=== PATIENT | female | born 1930 | race Caucasian/White ===

== ENCOUNTER 2019-02-19 02:33 | Inpatient (IN) | payer MEDICARE, OTHER ==
[~2019-02-19] VITALS: Ht 160 cm; Wt 46.7 kg
[2019-02-19 02:50] LABS: BASOPHILS # (AUTO) 0.1 /CMM (0.0-0.2); BASOPHILS % (AUTO) 0.7 % (0.0-2.0); EOSINOPHILS % (AUTO) 0.7 % (0.0-6.0); HEMATOCRIT 35 % (33-45); HEMOGLOBIN 11.4 g/dL (11.5-14.8); LYMPHOCYTES # (AUTO) 1.9 /CMM (0.8-4.8); MEAN CORPUSCULAR HGB CONC 33 g/dl (31.0-36.0); MEAN CORPUSCULAR VOLUME 82 fL (82-100); MONOCYTES # (AUTO) 2.6 /CMM (0.1-1.30); MONOCYTES % (AUTO) 12.3 % (2.0-12.0); NEUTROPHILS # (AUTO) 16.4 /CMM (1.8-8.9); NEUTROPHILS % (AUTO) 77.3 % (43.0-81.0); PLATELET COUNT (AUTO) 439 /CMM (150-450); RED BLOOD CELL COUNT(AUTO) 4.27 MIL/uL (4.0-5.2); WHITE BLOOD COUNT (AUTO) 21.2 K/uL (4.3-11.0)
--- NOTE | 2019-02-19 02:54 | NUR ---
MIREYA FROM HOME TO ER BED 10. AAOX4. NO RESP DISTRESS NOTED. BROUGHT IN FOR A GROUND LEVEL FALL AND SI. PT STATES THAT SHE FELL BECAUSE SHE WAS TRYING TO GO TO THE BATHROOM. PT ALSO STATES THAT SHE TOOK 9 TAB OF ASPIRIN THEN LATER ON CHAGED IT TO 9 TABLET VALIUM. PT IS COMPLAINING OF NECK PAIN. NOTED R ELBOW SKIN TEAR AND DISCLORATION AND ANOTHE SKIN TEAR ON R JESUS. NO ACTIVE BLEDDING NOTED. NO NOTED INJURY ON THE HEAD, DENIES TRAUMA. MD WAS AT BEDSIDE FOR EVAL ORDERS RECEIVED, NOTED, AND CARRIED OUT. PT IS STRIPPED OF CLOTHING, NO BELONGINGS UPON ARRIVAL.
[2019-02-19 03:04] LABS: ALANINE AMINOTRANSFERASE 10 U/L (12-78); ALBUMIN 2.8 g/dL (3.4-5.0); ALKALINE PHOSPHATASE 105 U/L (46-116); ASPARTATE AMINOTRANSFERASE 12 U/L (15-37); BILIRUBIN,DIRECT 0.1 mg/dL (0.0-0.2); BILIRUBIN,TOTAL 0.3 mg/dL (0.2-1.0); CALCIUM, SERUM 8.9 mg/dL (8.5-10.1); CHLORIDE 86 mmol/L (98-107); CREATININE 0.6 mg/dL (0.6-1.3); GLUCOSE 93 mg/dL (74-106); POTASSIUM 4.6 mmol/L (3.5-5.1); TOTAL PROTEIN, SERUM 8.4 g/dL (6.4-8.2); UREA NITROGEN, BLOOD 11 mg/dL (7-18)
[2019-02-19 03:05] LABS: ACETAMINOPHEN 0 ug/ml (10-30); ALCOHOL, BLOOD < 3 mg/dL (0-0)
[2019-02-19 03:06] LABS: CARBON DIOXIDE 28 mmol/L (21-32)
[2019-02-19 03:07] LABS: SODIUM SERUM 121 mmol/L (136-145)
--- NOTE | 2019-02-19 03:25 | NUR ---
URINE COLLECTED AND SENT TO LAB
[2019-02-19] MEDS ORDERED: IV NS 0.9% 500 ML BAG IV ONE (03:30)
[2019-02-19 03:50] LABS: APPEARANCE,URINE Slightly Cloudy (CLEAR); BILIRUBIN,URINE Negative (NEGATIVE); BLOOD, URINE Small Ery/uL (NEGATIVE); COLOR,URINE Yellow (YELLOW); KETONES,URINE Negative (NEGATIVE); LEUKOCYTE ESTERASE ,URINE Large (NEGATIVE); NITRITE, URINE Negative (NEGATIVE); PROTEIN,URINE 30 mg/dl (NEGATIVE); UGLUCOSE Negative (NEGATIVE); UROBILINOGEN,URINE 0.2 EU/dL (0.2)
[2019-02-19 04:13] LABS: BACTERIA,URINE Rare /HPF (None Seen); RBC,URINE 0-2 /HPF (0-2); SQUAMOUS EPITHELIAL CELL,UR Few /HPF (None Seen)
[2019-02-19] MEDS ORDERED: CEFTRIAXONE 1GM BAG (ER ONLY) 50 ML IV ONE ×2 (04:30→04:35)
--- NOTE | 2019-02-19 04:35 | NUR ---
REGIONAL EHS MANAGER AT BEDSIDE FOR BLOOD CULTURE BLOOD DRAW
--- NOTE | 2019-02-19 05:08 | NUR ---
UNABLE TO MOVE PATIENT UPSTAIRS DUE TO SHORTAGE OF SITTERS. ER MD AWARE. WILL CONTINUE TO MONITOR PATIENT UNTIL CHANGE OF SHIFT.
--- NOTE | 2019-02-19 05:39 | NUR ---
ROOM 304-2
[2019-02-19] MEDS ORDERED: Z GUARD REMEDY 2 OZ OINT TP PRN (06:30)
[2019-02-19] MEDS ORDERED: ZOLPIDEM TARTRATE 5 MG TABLET PO PRN (06:30)
[2019-02-19] MEDS ORDERED: ACETAMINOPHEN 325 MG TABLET PO PRN (06:30)
[2019-02-19] MEDS ORDERED: ONDANSETRON HCL/PF 4 MG/2 ML VIAL IVP PRN (06:30)
[2019-02-19] MEDS ORDERED: MAGNESIUM HYDROXIDE 30 ML UDC PO PRN (06:30)
--- NOTE | 2019-02-19 07:26 | NUR ---
RECEIVED REPORT FROM BOBBY PRYOR. PATIENT RECEIVED SLEEPING, AROUSABLE THROUGH VERBAL AND TACTILE STIMULI. NO ACUTE DISTRESS. DENIES ANY PAIN OR DISCOMFORT. WILL CONTINUE TO MONITOR
--- NOTE | 2019-02-19 07:43 | NUR ---
REPORT GIVEN TO SILVIO PRYOR FOR BIJU
[2019-02-19] MEDS ORDERED: ALBU18HF2 INH (07:46)
[2019-02-19] MEDS ORDERED: ASPI-1169 PO (07:46)
[2019-02-19] MEDS ORDERED: DIAZ10TA4 PO (07:46)
[2019-02-19] MEDS ORDERED: AMIO100T PO (07:46)
--- NOTE | 2019-02-19 08:01 | NUR ---
PATIENT TRANSFERRED TO UNIT IN STABLE CONDITION. NO ACUTE DISTRESS. RECEIVING RN AT BEDSIDE.
[2019-02-19] MEDS: HYDROCODONE/APAP 5/325MG 1 EACH TABLET PO PRN ×3 (08:34→23:17)
--- NOTE | 2019-02-19 08:45 | NUR ---
RN NOTES/PAIN MANAGEMENT PT C/O ACHING PAIN ON MED BACK WITH SCALE OF 6/10. PRN NORCO 5/325MG PO GIVEN AT 0834. WILL CONTINUE TO MONITOR AND REASSESS PT.
[2019-02-19] MEDS: ASPIRIN 81 MG TAB.CHEW PO SCH (09:17)
[2019-02-19] MEDS: AMIODARONE HCL 200 MG TABLET PO SCH (09:19)
[2019-02-19] MEDS: IV NS 0.9% 1,000 ML IV PRN (10:26)
--- NOTE | 2019-02-19 11:15 | NUR ---
MS RN ADMITTING NOTES ADMITTED A 88 Y/O FEMALE TO UNIT VIA GURNEY. A/O X3. ABLE TO MAKE NEEDS KNOWN WITH C/O PAIN ON MIDBACK, PRN NORCO 5/325MG PO GIVEN ORDERED. ORIENTED TO ROOM AND STAFF. PT ON ROOM AIR, BREATHING EVEN AND UNLABORED. VERBALIZED SI/HI, 1:1 SITTER INITIATED FOR CLOSE MONITORING. V/S TAKEN AND RECORDED. PHYSICAL ASSESSMENT DONE. PHOTOS OF SKIN ISSUES TAKEN AND FILED ON CHART. LUNGS CLEAR ON AUSCULTATION BILATERALLY. ABDOMEN SOF, NON-TENDER AND NON-DISTENDED WITH BOWELS SOUNDS ON FOUR QUADRANTS. PT NOTED WITH IV ACCESS ON LFA G#20 INTACT AND PATENT, IVF OF NS @75ML/HR STARTED, NO S/S OF INFILTRATIONS NOTED. SAFETY MEASURES INITIATED, BED PLACED IN LOWEST LOCKED POSITION WITH SIDE-RAILS UP X2. BED ALARM ON. CALL LIGHT WITHIN REACH. WILL CONTINUE TO CLOSELY MONITOR PT.
[2019-02-19 12:19] LABS: CALCIUM, SERUM 8.3 mg/dL (8.5-10.1); CREATININE 0.6 mg/dL (0.6-1.3); POTASSIUM 5.1 mmol/L (3.5-5.1)
--- NOTE | 2019-02-19 12:32 | NUR ---
RN NOTES PT FOR PSYCH CONSULT, FACE SHEET FAXED AND CONFIRMED TO [employer] FOR DR TORIBIO. WILL F/U.
[2019-02-19] MEDS ORDERED: ALBUTEROL FS 2.5 MG/0.5 ML VIAL.NEB NEB PRN (13:30)
--- NOTE | 2019-02-19 15:53 | NUR ---
RN NOTES/PAIN MANAGEMENT PT C/O ACHING PAIN ON MED BACK WITH SCALE OF 7/10. PRN NORCO 5/325MG PO GIVEN AT 1546. WILL CONTINUE TO MONITOR AND REASSESS PT.
[2019-02-19 16:30] LABS: CREATININE, URINE 57.5 MG/DL (30.0-125.0); URINE TOTAL PROTEIN 37.8 mg/dL (0-11.9)
[2019-02-19 16:38] LABS: APPEARANCE,URINE CLOUDY (CLEAR); BILIRUBIN,URINE NEGATIVE (NEGATIVE); BLOOD, URINE TRACE Ery/uL (NEGATIVE); COLOR,URINE YELLOW (YELLOW); KETONES,URINE NEGATIVE (NEGATIVE); LEUKOCYTE ESTERASE ,URINE SMALL (NEGATIVE); NITRITE, URINE NEGATIVE (NEGATIVE); PROTEIN,URINE NEGATIVE (NEGATIVE); UGLUCOSE NEGATIVE (NEGATIVE); UROBILINOGEN,URINE 0.2 EU/dL (0.2)
[2019-02-19 16:50] LABS: BACTERIA,URINE 2+ /HPF (None Seen); SQUAMOUS EPITHELIAL CELL,UR Few /HPF (None Seen); WBC,URINE 21-50 /HPF (0-3)
[2019-02-19 17:52] LABS: EOSINOPHIL,URINE None Seen
--- NOTE | 2019-02-19 18:45 | NUR ---
MS RN CLOSING NOTES PT IN BED ASLEEP AT THIS TIME, EASILY AROUSABLE. HOB ELEVATED. 1:1 SITTER AT BEDSIDE. PT IS A/O X3 AND VERBALLY RESPONSIVE.IV ACCESS ON LFA G#20 IN TACT AND PATENT. IVF 75ML/HR NO SIGN AND SYMPTOM OF INFILTRATION NOTED. ON ROOM AIR, TOLERATING WELL WITH NO SOB NOTED. ALL NEEDS AND CARE ATTENDED WELL. SAFETY MEASURES KEPT IN PLACE. BED LOW AND LOCKED WITH SIDE RAILS UP X2. CALL LIGHT WITHIN REACH. WILL ENDORSE TO CLINICAL UNIT EDUCATOR NURSE FOR BIJU
--- NOTE | 2019-02-19 19:42 | NUR ---
RN NOTES RECEIVED PATIENT IN BED ASLEEP AT THIS TIME, EASILY AROUSABLE. HOB ELEVATED. 1:1 SITTER AT BEDSIDE. PATIENT IS ALERT /ORIENTED X3 AND VERBALLY RESPONSIVE.IV ACCESS ON LFA G#20 IN TACT AND PATENT. IVF 75ML/HR NO SIGN AND SYMPTOM OF INFILTRATION NOTED. ON ROOM AIR, TOLERATING WELL WITH NO SOB NO ACUTE RESPIRATORY DISTRESS NOTED. ALL NEEDS AND CARE ATTENDED WELL. SAFETY MEASURES KEPT IN PLACE. BED LOW AND LOCKED WITH SIDE RAILS UP X2. CALL LIGHT WITHIN EASY REACH. WILL CONTINUE TO MONITOR ACCORDINGLY.
[2019-02-19 20:09] VITALS: BP 101/55
--- NOTE | 2019-02-20 00:02 | NUR ---
RN NOTES INFORMED HUBERT CAMACHO REGARDING PATIENT'S SODIUM LEVEL 119, WITH NEW ORDERS MADE. WILL MONITOR PATIENT.
[2019-02-20] MEDS: IV NS 0.9% 1,000 ML IV PRN ×2 (00:40→17:31)
[2019-02-20 01:06] LABS: CARBON DIOXIDE 25 mmol/L (21-32); CHLORIDE 90 mmol/L (98-107); CREATININE 0.6 mg/dL (0.6-1.3); GLUCOSE 136 mg/dL (74-106); POTASSIUM 4.6 mmol/L (3.5-5.1); SODIUM SERUM 121 mmol/L (136-145); UREA NITROGEN, BLOOD 17 mg/dL (7-18)
[2019-02-20] MEDS: CEFTRIAXONE 1 G in IV D5W 50 ML IV SCH (03:39)
[2019-02-20] MEDS: HYDROCODONE/APAP 5/325MG 1 EACH TABLET PO PRN ×2 (05:41→14:57)
[2019-02-20 06:23] LABS: BASOPHILS % (AUTO) 0.3 % (0.0-2.0); EOSINOPHILS % (AUTO) 0.4 % (0.0-6.0); HEMATOCRIT 26 % (33-45); HEMOGLOBIN 8.7 g/dL (11.5-14.8); LYMPHOCYTES # (AUTO) 1.6 /CMM (0.8-4.8); LYMPHOCYTES % (AUTO) 15.1 % (20.0-44.0); MEAN CORPUSCULAR HGB CONC 34 g/dl (31.0-36.0); MEAN CORPUSCULAR VOLUME 81 fL (82-100); MONOCYTES # (AUTO) 2.1 /CMM (0.1-1.30); MONOCYTES % (AUTO) 19.7 % (2.0-12.0); NEUTROPHILS # (AUTO) 6.7 /CMM (1.8-8.9); NEUTROPHILS % (AUTO) 64.5 % (43.0-81.0); PLATELET COUNT (AUTO) 352 /CMM (150-450); RED BLOOD CELL COUNT(AUTO) 3.19 MIL/uL (4.0-5.2); WHITE BLOOD COUNT (AUTO) 10.4 K/uL (4.3-11.0)
--- NOTE | 2019-02-20 06:39 | NUR ---
RN NOTES ALL NEEDS ATTENDED, SITTER AT BEDSIDE, SAFETY MEASURES IN PLACE, ASPIRATION PRECAUTION EMPHASIZE, SITTER AT BEDSIDE, PATIENT ON FLUID RESTRICTION OF 1,000 ML PER 24 HOUR ORDERED. WILL ENDORSED TO AM NURSE FOR CONTINUITY OF CARE.
[2019-02-20 06:40] LABS: CHOLESTEROL 81 mg/dL (<200); CREATINE KINASE, TOTAL 12 U/L (26-192); HDL CHOLESTEROL 46 mg/dL (40-60); LDL 28 mg/dL (0-99); TRIGLYCERIDES 53 mg/dL (30-150)
[2019-02-20 06:43] LABS: ALANINE AMINOTRANSFERASE 8 U/L (12-78); ALBUMIN 2.2 g/dL (3.4-5.0); ALKALINE PHOSPHATASE 86 U/L (46-116); ASPARTATE AMINOTRANSFERASE 10 U/L (15-37); BILIRUBIN,TOTAL 0.1 mg/dL (0.2-1.0); CALCIUM, SERUM 7.9 mg/dL (8.5-10.1); CARBON DIOXIDE 24 mmol/L (21-32); CHLORIDE 90 mmol/L (98-107); CREATININE 0.5 mg/dL (0.6-1.3); GLUCOSE 118 mg/dL (74-106); MAGNESIUM 1.6 mg/dL (1.8-2.4); POTASSIUM 4.6 mmol/L (3.5-5.1); SODIUM SERUM 121 mmol/L (136-145); TOTAL PROTEIN, SERUM 6.7 g/dL (6.4-8.2); UREA NITROGEN, BLOOD 15 mg/dL (7-18)
--- NOTE | 2019-02-20 07:30 | NUR ---
RN MS NOTES PT IN BED, ASLEEP, EASY TO AROUSE, ALERT AND VERBALLY RESPONSIVE, WITH CONFUSION, NO COMPLAINT OF PAIN, NOT IN DISTRESS, IV FLUIDS INFUSING WELL, SITTER AT BEDSIDE, CALL LIGHT WITHIN REACH, KEPT WARM AND COMFORTABLE IN BED.
[2019-02-20 08:00] VITALS: BP 101/68
[2019-02-20 08:47] LABS: LYMPHOCYTES % (MANUAL) 16 % (16-48); MONOCYTES % (MANUAL) 15 % (0-11.0); NEUTROPHILS % (MANUAL) 69 (42-76)
[2019-02-20] MEDS: AMIODARONE HCL 200 MG TABLET PO SCH (09:00)
[2019-02-20] MEDS: ASPIRIN 81 MG TAB.CHEW PO SCH ×2 (09:00→09:35)
[2019-02-20] MEDS: Magnesium 1GM/D5W 100ML PREMIX 100 ML IV SCH ×2 (10:33→12:52)
--- NOTE | 2019-02-20 10:34 | NUR ---
WOUND CARE CONSULT: PT PRESENTS WITH DRY ABRASIONS, BRUISES AND RAISED SKIN TEAR/ AREA TO RT LOWER LEG, PRESENT ON ADMISSION. RECOMMEND DPM CONSULT. DR HERRERA AWARE OF CONSULT REQUEST FOR DPM. RECOMMENDATIONS MADE FOR SKIN PROTECTION. DISCUSSED WITH NURSING STAFF. DEFER TO DPM FOR LOWER LEG. WILL SEE PRN. KING IN AGREEMENT WITH PLAN OF CARE. PT ON [place] ISOFLEX LOW AIRLOSS BED. CURRENT HIRO SCORE IS 14. Addendum: 02/20/19 at 1036 by SJ STAHL WNDNU Amended: Links added.
--- NOTE | 2019-02-20 13:00 | NUR ---
RN MS NOTES PT IN BED, RESTING, EASY TO AROUSE, ALERT AND VERBALLY RESPONSIVE, NO COMPLAINT AT THIS TIME, IV FLUIDS INFUSING WELL, SITTER AT BEDSIDE, SAFETY PRECAUTIONS OBSERVED.
[2019-02-20] MEDS: DULOXETINE HCL 30 MG CAPSULE.DR PO SCH (15:00)
[2019-02-20 16:00] VITALS: BP 106/61
--- NOTE | 2019-02-20 16:25 | NUR ---
RN MS NOTES CYMBALTA NOT GIVEN, PT REFUSED, TOO SLEEPY AT THIS TIME.
--- NOTE | 2019-02-20 18:26 | NUR ---
RN MS NOTES PT IN BED, RESTING, ALERT AND VERBALLY RESPONSIVE, FORGETFUL AND WITH CONFUSION AT TIMES, FAMILY INFORMED OF MD'S ORDER OF CT OF THE CHEST/ABD/PELVIS WITH CONTRAST, SON YNES REFUSED THE TEST, SAID HE WILL DISCUSS IT WITH HIS SISTER, DR. MORIN INFORMED, PM CARE PROVIDED, IV FLUIDS INFUSING WELL , ASSISTED WITH DINNER, ALL NEEDS ATTENDED.
--- NOTE | 2019-02-20 19:54 | NUR ---
RN NOTES RECEIVED PATIENT IN BED ASLEEP AT THIS TIME, EASILY AROUSABLE. HOB ELEVATED. 1:1 SITTER AT BEDSIDE. PATIENT IS ALERT /ORIENTED X3 AND VERBALLY RESPONSIVE.IV ACCESS ON RFA G#20 IN TACT AND PATENT. IVF 75ML/HR NO SIGN AND SYMPTOM OF INFILTRATION NOTED. ON ROOM AIR, TOLERATING WELL WITH NO SOB NO ACUTE RESPIRATORY DISTRESS NOTED. ALL NEEDS AND CARE ATTENDED WELL. SAFETY MEASURES KEPT IN PLACE. BED LOW AND LOCKED WITH SIDE RAILS UP X2. CALL LIGHT WITHIN EASY REACH. WILL CONTINUE TO MONITOR ACCORDINGLY.
[2019-02-20 20:00] VITALS: BP 115/63
[2019-02-20 20:15] VITALS: BP 115/63
[2019-02-21] MEDS: CEFTRIAXONE 1 G in IV D5W 50 ML IV SCH (03:43)
[2019-02-21 04:12] LABS: APPEARANCE,URINE SL CLOUDY (CLEAR); BILIRUBIN,URINE NEGATIVE (NEGATIVE); BLOOD, URINE NEGATIVE Ery/uL (NEGATIVE); COLOR,URINE YELLOW (YELLOW); KETONES,URINE NEGATIVE (NEGATIVE); LEUKOCYTE ESTERASE ,URINE SMALL (NEGATIVE); NITRITE, URINE NEGATIVE (NEGATIVE); PH,URINE 5.5 (5.0-8.0); PROTEIN,URINE NEGATIVE (NEGATIVE); UGLUCOSE NEGATIVE (NEGATIVE); UROBILINOGEN,URINE 0.2 EU/dL (0.2)
[2019-02-21 04:51] LABS: CREATININE, URINE 111.4 MG/DL (30.0-125.0); URINE TOTAL PROTEIN 62.6 mg/dL (0-11.9)
[2019-02-21 05:02] LABS: EOSINOPHIL,URINE None Seen
[2019-02-21] MEDS: IV NS 0.9% 1,000 ML IV PRN ×2 (06:13→19:35)
--- NOTE | 2019-02-21 07:20 | NUR ---
MS RN NOTES PATIENT IN BED ALERT ORIENTED X 3. NO ACUTE DISTRESS NOTED, BREATHING UNLABORED. NO SOB NOTED. IV ACCESS PATENT AND INTACT, NO REDNESS OR SWELLING NOTED.HOB ELEVATED. SAFETY MEASURES IN PLACE. CALL LIGHT WITHIN REACH, WILL CONTINUE TO MONITOR ACCORDINGLY.
--- NOTE | 2019-02-21 07:21 | NUR ---
RN NOTES PATIENT IN BED AWAKE AT THIS TIME, HOB ELEVATED. 1:1 SITTER AT BEDSIDE. PATIENT IS ALERT /ORIENTED X3 AND VERBALLY RESPONSIVE.IV ACCESS ON RFA G#20 IN TACT AND PATENT. IVF 75ML/HR NO SIGN AND SYMPTOM OF INFILTRATION NOTED. ON ROOM AIR, TOLERATING WELL WITH NO SOB NO ACUTE RESPIRATORY DISTRESS NOTED. ALL NEEDS AND CARE ATTENDED WELL. SAFETY MEASURES KEPT IN PLACE. BED LOW AND LOCKED WITH SIDE RAILS UP X2. CALL LIGHT WITHIN EASY REACH. WILL ENDORSE TO AM NURSE FOR CONTINUITY OF CARE.
[2019-02-21 07:37] LABS: THYROID STIMULATING HORMONE 2.153 uIU/mL (0.358-3.74); URIC ACID 1.8 mg/dL (2.6-7.2)
[2019-02-21 08:17] LABS: CALCIUM, SERUM 8.1 mg/dL (8.5-10.1); CARBON DIOXIDE 24 mmol/L (21-32); CHLORIDE 92 mmol/L (98-107); CREATININE 0.5 mg/dL (0.6-1.3); GLUCOSE 125 mg/dL (74-106); MAGNESIUM 1.9 mg/dL (1.8-2.4); PHOSPHORUS 2.7 mg/dL (2.5-4.9); POTASSIUM 5.1 mmol/L (3.5-5.1); SODIUM SERUM 124 mmol/L (136-145); UREA NITROGEN, BLOOD 12 mg/dL (7-18)
[2019-02-21 08:37] LABS: CANCER AG, 125 75.9 U/mL (0.0-38.1)
[2019-02-21] MEDS: ASPIRIN 81 MG TAB.CHEW PO SCH (09:17)
[2019-02-21] MEDS: DULOXETINE HCL 30 MG CAPSULE.DR PO SCH (09:17)
[2019-02-21] MEDS: AMIODARONE HCL 200 MG TABLET PO SCH (09:20)
[2019-02-21 12:09] LABS: *SPE A/G RATIO 0.8 (0.7-1.7); *SPE ALBUMIN 2.7 g/dL (2.9-4.4); *SPE ALPHA-1-GLOBULIN 0.3 g/dL (0.0-0.4); *SPE ALPHA-2-GLOBULIN 0.7 g/dL (0.4-1.0); *SPE BETA GLOBULIN 0.4 g/dL (0.7-1.3); *SPE GLOBULIN, TOTAL 3.5 g/dL (2.2-3.9); *SPE M-SPIKE 1.7 g/dL (Not Observed); *SPEGAMMA GLOBULIN 2.1 g/dL (0.4-1.8)
--- NOTE | 2019-02-21 19:00 | NUR ---
MS RN NOTES PATIENT IN BED ALERT ORIENTED X 3. NO ACUTE DISTRESS NOTED, BREATHING UNLABORED. NO SOB NOTED. IV ACCESS PATENT AND INTACT, NO REDNESS OR SWELLING NOTED.DUE MEDICATIONS GIVEN, NO ASE NOTED. NEEDS ATTENDED AND ANTICIPATED. HOB ELEVATED. SAFETY MEASURES IN PLACE. CALL LIGHT WITHIN REACH, WILL ENDORSE TO NIGHT NURSE FOR CONTINUITY OF CARE.
--- NOTE | 2019-02-21 19:15 | NUR ---
MS RN OPENING NOTES: RECEIVED PATIENT IN BED, ALERT ORIENTED X 3. 1:1 SITTER AT BEDSIDE. BREATHING EVEN AND UNLABORED. NO ACUTE DISTRESS NOTED. PERIPHERAL IV INFUSING AT 75ML/HR. SAFETY MEASURES IN PLACE. CALL LIGHT WITHIN REACH. BED IN LOW, LOCKED POSITION. WILL CONTINUE TO MONITOR ACCORDINGLY
[2019-02-21 20:00] VITALS: BP 111/64
[2019-02-22] MEDS: HYDROCODONE/APAP 5/325MG 1 EACH TABLET PO PRN (00:08)
[2019-02-22] MEDS: CEFTRIAXONE 1 G in IV D5W 50 ML IV SCH (03:10)
[2019-02-22 06:34] LABS: BASOPHILS % (AUTO) 0.5 % (0.0-2.0); EOSINOPHILS % (AUTO) 1.3 % (0.0-6.0); LYMPHOCYTES # (AUTO) 1.5 /CMM (0.8-4.8); LYMPHOCYTES % (AUTO) 14.7 % (20.0-44.0); MEAN CORPUSCULAR HGB CONC 34 g/dl (31.0-36.0); MEAN CORPUSCULAR VOLUME 82 fL (82-100); MONOCYTES # (AUTO) 1.8 /CMM (0.1-1.30); NEUTROPHILS # (AUTO) 6.5 /CMM (1.8-8.9); NEUTROPHILS % (AUTO) 65.5 % (43.0-81.0); PLATELET COUNT (AUTO) 335 /CMM (150-450); RED BLOOD CELL COUNT(AUTO) 2.49 MIL/uL (4.0-5.2); WHITE BLOOD COUNT (AUTO) 9.9 K/uL (4.3-11.0)
[2019-02-22 06:47] LABS: CALCIUM, SERUM 8.1 mg/dL (8.5-10.1); CARBON DIOXIDE 27 mmol/L (21-32); CHLORIDE 93 mmol/L (98-107); CREATININE 0.5 mg/dL (0.6-1.3); GLUCOSE 107 mg/dL (74-106); MAGNESIUM 1.7 mg/dL (1.8-2.4); PHOSPHORUS 2.9 mg/dL (2.5-4.9); POTASSIUM 4.6 mmol/L (3.5-5.1); SODIUM SERUM 126 mmol/L (136-145); UREA NITROGEN, BLOOD 11 mg/dL (7-18)
[2019-02-22 06:59] LABS: HEMATOCRIT 20 % (33-45)
--- NOTE | 2019-02-22 07:00 | NUR ---
RN NOTES LAB CALLED FOR CRITICAL LAB VALUE OF H/H- 7.0/20. MADE AWARE. A/W FOR ORDERS
--- NOTE | 2019-02-22 07:28 | NUR ---
MS RN CLOSING NOTES PATIENT ASLEEP, EASILY AWAKE. ALL NURSING NEEDS ATTENDED, ALL DUE MEDS GIVEN. KEPT ON BED CLEAN, DRY AND COMFORTABLE. ON FALL PRECAUTIONS. CALL LIGHT WITHIN EASY REACH. ENDORSED TO THE NEXT SHIFT.
--- NOTE | 2019-02-22 07:45 | NUR ---
MS RN NOTES NOTIFIED DR TOMI MORIN REGARDING LABORATORY TEST RESULT FROM TODAY INCLUDING HGB AND ACT, NO NEW ORDERS MADE AT THIS TIME.
[2019-02-22 08:00] VITALS: BP 130/58
[2019-02-22 08:50] LABS: LYMPHOCYTES % (MANUAL) 22 % (16-48); MONOCYTES % (MANUAL) 12 % (0-11.0); NEUTROPHILS % (MANUAL) 66 (42-76)
[2019-02-22] MEDS: AMIODARONE HCL 200 MG TABLET PO SCH (08:52)
[2019-02-22] MEDS: ASPIRIN 81 MG TAB.CHEW PO SCH (08:52)
[2019-02-22] MEDS: DULOXETINE HCL 30 MG CAPSULE.DR PO SCH (08:52)
--- NOTE | 2019-02-22 09:00 | NUR ---
MS RN NOTES PATIENT FAMILY WANTS TO SPEAK WITH THE DOCTOR AND ALSO REFUSING CT ABDOMEN CHEST PELVIS WITH CONTRAST, NOTIFIED DR TOMI MORIN MADE AWARE SAID HE WILL COME TO SEE PATIENT AND SPEAK WITH FAMILY
[2019-02-22] MEDS: Magnesium 1GM/D5W 100ML PREMIX 100 ML IV SCH ×2 (10:47→12:10)
[2019-02-22] MEDS: IV NS 0.9% 1,000 ML IV PRN (11:12)
--- NOTE | 2019-02-22 11:28 | NUR ---
MS RN NOTES SEEN AND EVALUATED BY DR TOMI MORIN, DAUGHTER AT BEDSIDE. WITH NEW ORDERS MADE, NOTED AND CARRIED OUT.
[2019-02-22 16:00] VITALS: BP 122/64
--- NOTE | 2019-02-22 18:46 | NUR ---
MS RN NOTES PATIENT IN BED ALERT ORIENTED X 3. NO ACUTE DISTRESS NOTED, BREATHING UNLABORED. NO SOB NOTED. IV ACCESS PATENT AND INTACT, NO REDNESS OR SWELLING NOTED.DUE MEDICATIONS GIVEN. NO ASE NOTED. NEEDS ATTENDED AND ANTICIPATED. HOB ELEVATED. SAFETY MEASURES IN PLACE. CALL LIGHT WITHIN REACH, WILL ENDORSE TO NIGHT NURSE FOR CONTINUITY OF CARE.
--- NOTE | 2019-02-22 19:15 | NUR ---
MS RN NOTES RECEIVED ON BED,ON SEMI FOWLERS POSITION,A/O X2-3,APPEARS SO DROWSY,/SP FALL AT HOME,SITTER AT BEDSIDE FOR FALL PRECAUTION IVF AT TKO RATE INFUSING ON RIGHT FOREARM#20,SITE PATENT.NOTED RIGHT ELBOW ABRASION COVERED WITH MEPILEX.SEEN BY DR HEMPHILL FOR CONSULT.ON FLUID RESTRICTION 1LITER PER 24 HOURS,NOTED,SITTER MADE AWARE.WILL CONTINUE TO MONITOR STATUS.
--- NOTE | 2019-02-22 19:30 | NUR ---
PT NOT COOPERATIVE, KEPT TALKING AND PUSHING THE TRANSDUCER AWAY, DIFFICULT TO DO THE EXAM.
[2019-02-22 20:00] VITALS: BP 111/70
[2019-02-23] VITALS (7 sets, daily range): BP systolic 94–136; BP diastolic 55–80
--- NOTE | 2019-02-23 01:00 | NUR ---
MS RN NOTES SLEEPING BREATHING EASY,NO SOB,SITTER AT BEDSIDE FOR SAFETY.
[2019-02-23] MEDS: CEFTRIAXONE 1 G in IV D5W 50 ML IV SCH (03:53)
[2019-02-23 06:30] LABS: BASOPHILS % (AUTO) 0.4 % (0.0-2.0); EOSINOPHILS % (AUTO) 0.3 % (0.0-6.0); HEMATOCRIT 21 % (33-45); LYMPHOCYTES # (AUTO) 1.3 /CMM (0.8-4.8); LYMPHOCYTES % (AUTO) 11.4 % (20.0-44.0); MEAN CORPUSCULAR HGB CONC 33 g/dl (31.0-36.0); MEAN CORPUSCULAR VOLUME 82 fL (82-100); MONOCYTES # (AUTO) 1.6 /CMM (0.1-1.30); MONOCYTES % (AUTO) 14.3 % (2.0-12.0); NEUTROPHILS # (AUTO) 8.2 /CMM (1.8-8.9); NEUTROPHILS % (AUTO) 73.6 % (43.0-81.0); PLATELET COUNT (AUTO) 392 /CMM (150-450); RED BLOOD CELL COUNT(AUTO) 2.56 MIL/uL (4.0-5.2); WHITE BLOOD COUNT (AUTO) 11.2 K/uL (4.3-11.0)
--- NOTE | 2019-02-23 06:40 | NUR ---
MS RN NOTES REPORTED BY WAYNE,LAB TACH,HEMOGLOBIN/HEMATOCRIT OF 6.9/21 AT THIS TIME.
[2019-02-23 06:42] LABS: HEMOGLOBIN 6.9 g/dL (11.5-14.8)
--- NOTE | 2019-02-23 06:54 | NUR ---
MS RN NOTES CALM AND QUIET ON BED,REMAINS DROWSY BUT AROUSABLE TO VERBAL STIMULI,SITTER AT BEDSIDE.NO BM LAST NIGHT,STILL NEED STOOL FOR OB,VITAL SIGNS WITH IN NORMAL LIMITS.IN NO ACUTE DISTRESS.WILL ENDORSE TO [facility] FOR IBJU.
[2019-02-23 06:55] LABS: FERRITIN 196 ng/mL (8-388)
[2019-02-23 06:58] LABS: CALCIUM, SERUM 8.2 mg/dL (8.5-10.1); CARBON DIOXIDE 27 mmol/L (21-32); CHLORIDE 92 mmol/L (98-107); CREATININE 0.5 mg/dL (0.6-1.3); GLUCOSE 122 mg/dL (74-106); MAGNESIUM 1.8 mg/dL (1.8-2.4); PHOSPHORUS 2.7 mg/dL (2.5-4.9); POTASSIUM 4.5 mmol/L (3.5-5.1); SODIUM SERUM 126 mmol/L (136-145); UREA NITROGEN, BLOOD 11 mg/dL (7-18)
[2019-02-23 07:38] LABS: IRON, SERUM 14 ug/dl (50-175); TOTAL IRON BINDING CAPACITY 169 ug/dl (250-450)
--- NOTE | 2019-02-23 07:38 | NUR ---
MS RN OPENING NOTES RECEIVED PATIENT IN BED RESTING COMFORTABLY IN MODERATE HIGH BACK REST. A/O X 2. SITTER AT BEDSIDE. NO ACUTE SIGNS OF DISTRESS NOTED AT THIS TIME. SAFETY PRECAUTION IN PLACE, BED IN LOW LOCKED POSITION WITH SIDE RAILS UP X 2. CALL LIGHT WITHIN REACH. WILL CONTINUE TO MONITOR.
--- NOTE | 2019-02-23 08:03 | NUR ---
RN NOTES DR. TOMI MORIN MADE AWARE OF CRITICAL RESULTS OF HGB 6.9. NO NEW ORDERS AT THIS TIME. WILL CONTINUE TO MONITOR.
[2019-02-23 08:29] LABS: LYMPHOCYTES % (MANUAL) 8 % (16-48); MONOCYTES % (MANUAL) 9 % (0-11.0); NEUTROPHILS % (MANUAL) 83 (42-76)
[2019-02-23] MEDS: DULOXETINE HCL 30 MG CAPSULE.DR PO SCH (08:34)
[2019-02-23] MEDS: AMIODARONE HCL 200 MG TABLET PO SCH (08:35)
[2019-02-23] MEDS: ASPIRIN 81 MG TAB.CHEW PO SCH (08:40)
--- NOTE | 2019-02-23 09:30 | NUR ---
RN NOTES FAMILY AT BEDSIDE, SIGNED BLOOD TRANSFUSION CONSENT BUT REFUSED CT CHEST ABDOMEN PELVIS WO CONTRAST AND XR BONE SURVEY COMPLETE.
[2019-02-23] MEDS: CEPHALEXIN MONOHYDRATE 250 MG CAPSULE PO SCH ×2 (12:16→21:56)
--- NOTE | 2019-02-23 13:45 | NUR ---
RN NOTES PATIENT STARTED WITH BLOOD TRANSFUSION PER MD ORDER, V/S FOLLOWS: T-98.4, BP-126/76, P- 99, RR- 18. PATIENT IN NO SIGNS OF DISTRESS. WILL CONTINUE TO MONITOR.
--- NOTE | 2019-02-23 13:56 | NUR ---
RN NOTES PT ON ONGOING BLOOD TRANSFUSION, NO ALLERGIC REACTIONS NOTED AFTER 15MINUTES OF STARTING. WILL CONTINUE TO MONITOR.
[2019-02-23] MEDS: FERROUS SULFATE (325 MG) 325 MG/TAB TABLET PO SCH (16:18)
--- NOTE | 2019-02-23 16:57 | NUR ---
RN NOTES BLOOD TRANSFUSION OF PRBC X1 BAG (304ml) FINISHED AND TOLERATED WELL, NO ADVERSE/ALLERGIC REACTIONS NOTED. POST BT V/S: BP 115/68, P 91, R 18 AND T 98.4F. WILL CONTINUE TO MONITOR.
--- NOTE | 2019-02-23 18:41 | NUR ---
MS RN CLOSING NOTES PATIENT IN BED RESTING COMFORTABLY IN MODERATE HIGH BACK REST. A/O X 2. SITTER AT BEDSIDE. OXYGEN 1LPM VIA NC WITH OXYGEN SATURATION OF 99%. S/P BLOOD TRANSFUSION OF PRBC 1 UNIT. NO ACUTE SIGNS OF DISTRESS THROUGHOUT THE SHIFT. ALL NURSING CARE RENDERED. SAFETY PRECAUTION IN PLACE, BED IN LOW LOCKED POSITION WITH SIDE RAILS UP X 2. CALL LIGHT WITHIN REACH. WILL ENDORSE TO LOCKSTITCH WAISTLINE JOINER NURSE FOR BIJU.
--- NOTE | 2019-02-23 19:00 | NUR ---
patient's lower lip is swollen.
--- NOTE | 2019-02-23 19:00 | NUR ---
MS RN OPENING NOTES: RECEIVED PATIENT IN BED, ASLEEP, AROUSABLE, LETHARGIC. ON O2 AT 1L/MIN, SATTING ON 97%. HEAD OF BED AT 30 DEGREES. PATIENT SLIGHTLY WOKE UP WHEN COUGHS OCCASIONALLY WITH MINIMAL PHLEGM AND ABLE TO SWALLOW IT. BLE ELEVATED WITH PILLOW AND HEELS OFFLOADED. WITH LEFT FOREARM SKIN TEAR NO BLEEDING NOTED, COVERED WITH GAUZE. WITH DRIED SCAB ON THE RIGHT LE, OPEN TO AIR.
--- NOTE | 2019-02-23 21:12 | NUR ---
PATIENT TURNED TO THE LEFT SIDE. BETADINE APPLIED TO THE RIGHT LEG DRIED WOUND AND COVERED WITH MEPILEX FOAM DRESSING. AND BETADINE APPLIED ALSO TO THE RIGHT ELBOW DRIED ABRASION AND PROTECTED WITH MEPILEX DRESSING. BLE AND HEELS ELEVATED WITH PILLOW.
--- NOTE | 2019-02-23 21:24 | NUR ---
PATIENT IS MORE AROUSABLE, SLIGHTLY LETHARGIC. ASKED PATIENT IF SHE WOULD LIKE TO TAKE HER PILL AND SHE RELIED YES. PATIENT IS ALERT NOW. PLACED HEAD OF BED AT 45 DEGREES AND CHANGED POSITION TO HER BACK FOR ORAL INTAKE.
--- NOTE | 2019-02-23 22:00 | NUR ---
patient woke up and said " I need breakfast, I'm hungry". Reoriented the patient. Offered the pound cake. Placed the head of the bed at 45 degrees. Fed the patient with pound cake and ate 90% of it. Gave water as interval. Patient requested apple sauce, and consumed 2 tablespoons. Patient able to swallow food and drink water without difficulties.
--- NOTE | 2019-02-23 23:50 | NUR ---
changed diaper and turned to the right side. Head of bed at 30 degrees.
[2019-02-24 02:23] VITALS: BP 122/69
--- NOTE | 2019-02-24 02:25 | NUR ---
changed position. patient is on her back at this time. BLE and heels offloaded.
--- NOTE | 2019-02-24 04:00 | NUR ---
TURNED TO THE LEFT SIDE. BLE AND HEELS OFFLOADED.
--- NOTE | 2019-02-24 04:10 | NUR ---
SCD's placed on BLE.
--- NOTE | 2019-02-24 04:22 | NUR ---
PATIENT IS MORE AWAKE AT THIS TIME, WANTS TO DRINK WATER, GIVEN SLOWLY.
--- NOTE | 2019-02-24 04:24 | NUR ---
ASPIRATION PRECAUTION IS OBSERVED.
[2019-02-24 05:55] LABS: BASOPHILS # (AUTO) 0.1 /CMM (0.0-0.2); BASOPHILS % (AUTO) 1.2 % (0.0-2.0); EOSINOPHILS % (AUTO) 1.4 % (0.0-6.0); HEMATOCRIT 24 % (33-45); HEMOGLOBIN 7.9 g/dL (11.5-14.8); LYMPHOCYTES # (AUTO) 1.7 /CMM (0.8-4.8); LYMPHOCYTES % (AUTO) 16.5 % (20.0-44.0); MEAN CORPUSCULAR HGB CONC 34 g/dl (31.0-36.0); MEAN CORPUSCULAR VOLUME 82 fL (82-100); MONOCYTES # (AUTO) 2.1 /CMM (0.1-1.30); MONOCYTES % (AUTO) 19.7 % (2.0-12.0); NEUTROPHILS # (AUTO) 6.4 /CMM (1.8-8.9); NEUTROPHILS % (AUTO) 61.2 % (43.0-81.0); PLATELET COUNT (AUTO) 405 /CMM (150-450); RED BLOOD CELL COUNT(AUTO) 2.88 MIL/uL (4.0-5.2); WHITE BLOOD COUNT (AUTO) 10.5 K/uL (4.3-11.0)
--- NOTE | 2019-02-24 06:12 | NUR ---
MS RN CLOSING NOTES: PATIENT IS RESTING COMFORTABLY IN BED. A/O X2 WITH PERIODS OF CONFUSION. NO ACUTE EVENTS OVERNIGHT. VITALS STABLE. AFEBRILE. NO C/O PAIN. NO SOB NOTED. KEPT PATIENT CLEAN AND DRY THROUGHOUT THE SHIFT. BILATERAL SCD's ON AT ALL TIMES. BLE AND HEELS OFF LOADED. BED IN LOWEST AND LOCKED POSITION. Z-GUARD APPLIED ON THE SACROCOCCYX AREA AND PERINEAL AREAS FOR SKIN PROTECTIONS. MEPILEX DRESSINGS ON THE RIGHT ELBOW AND RIGHT LEG ARE STILL IN PLACE.
[2019-02-24 06:19] LABS: CALCIUM, SERUM 8.2 mg/dL (8.5-10.1); CARBON DIOXIDE 30 mmol/L (21-32); CHLORIDE 94 mmol/L (98-107); CREATININE 0.4 mg/dL (0.6-1.3); GLUCOSE 97 mg/dL (74-106); MAGNESIUM 1.7 mg/dL (1.8-2.4); PHOSPHORUS 3.1 mg/dL (2.5-4.9); POTASSIUM 4.5 mmol/L (3.5-5.1); SODIUM SERUM 127 mmol/L (136-145); UREA NITROGEN, BLOOD 10 mg/dL (7-18)
--- NOTE | 2019-02-24 07:30 | NUR ---
INITIAL PATIENT IN BED RESTING COMFORTABLY IN MODERATE HIGH BACK REST. A/O X 2. SITTER AT BEDSIDE. OXYGEN 1LPM VIA NC WITH OXYGEN SATURATION OF 99%. S/P BLOOD TRANSFUSION OF PRBC 1 UNIT. NO ACUTE SIGNS OF DISTRESS THROUGHOUT THE SHIFT. SAFETY AND ASPIRATION PRECAUTION IN PLACE, BED IN LOW LOCKED POSITION WITH SIDE RAILS UP X 2. CALL LIGHT WITHIN REACH. WILL CONTINUE TO MONITOR.
[2019-02-24 08:00] VITALS: BP 142/81
[2019-02-24] MEDS: ASPIRIN 81 MG TAB.CHEW PO SCH (08:06)
[2019-02-24] MEDS: DULOXETINE HCL 30 MG CAPSULE.DR PO SCH (08:06)
[2019-02-24] MEDS: FERROUS SULFATE (325 MG) 325 MG/TAB TABLET PO SCH ×2 (08:06→17:07)
[2019-02-24] MEDS: CEPHALEXIN MONOHYDRATE 250 MG CAPSULE PO SCH ×3 (08:06→21:51)
[2019-02-24 08:07] LABS: IMMUNOGLOBULIN A, SERUM 15 mg/dL (64-422); IMMUNOGLOBULIN G, SERUM 486 mg/dL (700-1600); IMMUNOGLOBULIN M, SERUM 2308 mg/dL (26-217)
[2019-02-24] MEDS: AMIODARONE HCL 200 MG TABLET PO SCH (08:07)
[2019-02-24 10:28] LABS: LYMPHOCYTES % (MANUAL) 22 % (16-48); MONOCYTES % (MANUAL) 17 % (0-11.0); NEUTROPHILS % (MANUAL) 61 (42-76)
[2019-02-24] MEDS: Magnesium 1GM/D5W 100ML PREMIX 100 ML IV SCH ×2 (13:05→15:06)
[2019-02-24 16:00] VITALS: BP 127/73
[2019-02-24] MEDS: ENSURE ENLIVE 237 ML LIQUID (VANILLA) PO SCH (17:03)
--- NOTE | 2019-02-24 18:03 | NUR ---
CLOSING PATIENT IS RESTING COMFORTABLY IN BED. A/O X2 WITH PERIODS OF CONFUSION. NO ACUTE EVENTS OVERNIGHT. VITALS STABLE. AFEBRILE. NO C/O PAIN. NO SOB NOTED. KEPT PATIENT CLEAN AND DRY THROUGHOUT THE SHIFT. BILATERAL SCD's ON AT ALL TIMES. BLE AND HEELS OFF LOADED. BED IN LOWEST AND LOCKED POSITION. Z-GUARD APPLIED ON THE SACROCOCCYX AREA AND PERINEAL AREAS FOR SKIN PROTECTIONS. MEPILEX DRESSINGS ON THE RIGHT ELBOW AND RIGHT LEG ARE STILL IN PLACE. wILL GIVEN RN REPORT TO PM SHIFT FOR CONTINUITY OF CARE
--- NOTE | 2019-02-24 19:46 | NUR ---
MS RN NOTES RECEIVED PATIENT ASLEEP IN BED WITH NO DISTRESS NOTED. CALL LIGHT WITHIN REACH. SITTER AT BEDSIDE. PERIPHERAL LINE INTACT AND PATENT. NO FACIAL GRIMACING OR GROANING TO INDICATE PAIN OR DISCOMFORT. BED IN LOW LOCK SETTING. ALL BELONGINGS KEPT NEAR BEDSIDE. WILL CONTINUE TO MONITOR.
[2019-02-24 20:00] VITALS: BP 116/68
[2019-02-25 06:45] LABS: CARBON DIOXIDE 29 mmol/L (21-32); CHLORIDE 92 mmol/L (98-107); CREATININE 0.5 mg/dL (0.6-1.3); GLUCOSE 101 mg/dL (74-106); MAGNESIUM 1.9 mg/dL (1.8-2.4); POTASSIUM 4.7 mmol/L (3.5-5.1); SODIUM SERUM 126 mmol/L (136-145); UREA NITROGEN, BLOOD 11 mg/dL (7-18)
--- NOTE | 2019-02-25 07:07 | NUR ---
MS RN NOTES PATIENT ASLEEP IN BED WITH NO DISTRESS NOTED. CALL LIGHT WITHIN REACH. SITTER AT BEDSIDE. ALL DUE MEDS GIVEN ORDERED WITH NO ASE NOTED. PERIPHERAL LINE INTACT AND PATENT. NO C/O PAIN OR DISCOMFORT. BED IN LOW LOCK SETTING. ALL BELONGINGS KEPT NEAR BEDSIDE. WILL ENDORSE TO ONCOMING SHIFT.
--- NOTE | 2019-02-25 07:21 | NUR ---
MS RN OPENING NOTES RECEIVED PATIENT ASLEEP IN BED RESTING COMFORTABLY IN MODERATE HIGH BACK REST WITH NO SIGNS OF DISTRESS NOTED AT THIS TIME. SITTER AT BEDSIDE. IV ACCESS ON RFA #22, SL. INTACT AND PATENT. NO FACIAL GRIMACING OR GROANING TO INDICATE PAIN OR DISCOMFORT. SAFETY MEASURES IN PLACE, BED IN LOW LOCKED POSITION WITH SIDE RAILS UP X2. CALL LIGHT WITHIN REACH. WILL CONTINUE TO MONITOR.
[2019-02-25 08:00] VITALS: BP 115/67
[2019-02-25] MEDS: ASPIRIN 81 MG TAB.CHEW PO SCH (08:12)
[2019-02-25] MEDS: FERROUS SULFATE (325 MG) 325 MG/TAB TABLET PO SCH ×2 (08:14→16:27)
[2019-02-25] MEDS: AMIODARONE HCL 200 MG TABLET PO SCH (08:14)
[2019-02-25] MEDS: CEPHALEXIN MONOHYDRATE 250 MG CAPSULE PO SCH ×3 (08:14→21:38)
[2019-02-25] MEDS: DULOXETINE HCL 30 MG CAPSULE.DR PO SCH (08:14)
[2019-02-25] MEDS: ENSURE ENLIVE 237 ML LIQUID (VANILLA) PO SCH ×2 (08:15→16:27)
[2019-02-25 16:00] VITALS: BP 127/69
--- NOTE | 2019-02-25 18:36 | NUR ---
MS RN CLOSING NOTES PATIENT IN BED RESTING COMFORTABLY IN MODERATE HIGH BACK REST WITH NO SIGNS OF DISTRESS NOTED THROUGHOUT THE SHIFT. SITTER AT BEDSIDE. IV ACCESS ON RFA #22, SL. INTACT AND PATENT. SAFETY MEASURES IN PLACE, BED IN LOW LOCKED POSITION WITH SIDE RAILS UP X2. CALL LIGHT WITHIN REACH. WILL ENDORSE TO MARKET RESEARCH CONSULTANT NURSE FOR BIJU.
[2019-02-25 19:02] VITALS: BP 125/72
--- NOTE | 2019-02-25 19:05 | NUR ---
MS RN NOTES RECEIVED PT IN BED AWAKE WITH SITTER AT BEDSIDE. PT A/O X2 WITH PERIODS OF CONFUSION. RESPIRATIONS EVEN AND UNLABORED WITH NO S/S OF ACUTE DISTRESS OR SOB. PT NOTED WITH IV ACCESS ON RFA #22, PATENT AND INTACT AND SL. NO COMPLAINTS OF PAIN AT THIS TIME. SAFETY MEASURES IN PLACE, BED IN LOW LOCKED POSITION WITH SIDE RAILS UP X2. CALL LIGHT WITHIN REACH. WILL CONTINUE TO MONITOR.
[2019-02-26 06:17] LABS: BASOPHILS # (AUTO) 0.1 /CMM (0.0-0.2); BASOPHILS % (AUTO) 1.2 % (0.0-2.0); EOSINOPHILS % (AUTO) 1.2 % (0.0-6.0); HEMATOCRIT 25 % (33-45); LYMPHOCYTES # (AUTO) 1.7 /CMM (0.8-4.8); LYMPHOCYTES % (AUTO) 14.9 % (20.0-44.0); MEAN CORPUSCULAR HGB CONC 32 g/dl (31.0-36.0); MEAN CORPUSCULAR VOLUME 83 fL (82-100); MONOCYTES # (AUTO) 2.2 /CMM (0.1-1.30); MONOCYTES % (AUTO) 19.2 % (2.0-12.0); NEUTROPHILS # (AUTO) 7.1 /CMM (1.8-8.9); NEUTROPHILS % (AUTO) 63.5 % (43.0-81.0); PLATELET COUNT (AUTO) 430 /CMM (150-450); RED BLOOD CELL COUNT(AUTO) 3.01 MIL/uL (4.0-5.2); WHITE BLOOD COUNT (AUTO) 11.2 K/uL (4.3-11.0)
[2019-02-26 06:27] LABS: CALCIUM, SERUM 8.4 mg/dL (8.5-10.1); CARBON DIOXIDE 29 mmol/L (21-32); CHLORIDE 91 mmol/L (98-107); CREATININE 0.4 mg/dL (0.6-1.3); GLUCOSE 98 mg/dL (74-106); MAGNESIUM 1.7 mg/dL (1.8-2.4); PHOSPHORUS 3.3 mg/dL (2.5-4.9); POTASSIUM 4.7 mmol/L (3.5-5.1); SODIUM SERUM 126 mmol/L (136-145); UREA NITROGEN, BLOOD 11 mg/dL (7-18)
--- NOTE | 2019-02-26 06:48 | NUR ---
MS RN NOTES PT IN BED ASLEEP BUT EASILY AWOKEN VERBALLY OR BY TOUCH WITH SITTER AT BEDSIDE. PT A/O X2 WITH PERIODS OF CONFUSION. RESPIRATIONS EVEN AND UNLABORED WITH NO S/S OF ACUTE DISTRESS OR SOB NOTED THROUGHOUT SHIFT. PT NOTED WITH IV ACCESS ON RFA #22, PATENT AND INTACT AND SL. PT KEPT CLEAN, DRY, AND COMFORTABLE. TURNED PT Q2 HOURS THROUGHOUT SHIFT. NO COMPLAINTS OF PAIN AT THIS TIME. SAFETY MEASURES IN PLACE, BED IN LOW LOCKED POSITION WITH SIDE RAILS UP X2. CALL LIGHT WITHIN REACH. WILL ENDORSE TO ONCOMING NURSE FOR BIJU.
--- NOTE | 2019-02-26 07:45 | NUR ---
MS RN NOTES PATIENT RECEIVED RESTING INSIDE ROOM. AWAKE, ALERT AND ORIENTED X 2, NO ACUTE DISTRESS. DENIES ANY PAIN OR DISCOMFORT. NO CHANGES IN LOC NOTED. SITTER AT BEDSIDE. STEVO ANY SI/HI AT THIS TIME. SAFETY PRECAUTIONS IN PLACE. WILL CONTINUE TO MONITOR. BED LOCKED AND IN LOW POSITION. BILATERAL UPPER SIDE RAILS UP AND LOCKED. CALL LIGHT WITHIN EASY REACH
[2019-02-26 08:17] LABS: BAND % (MANUAL) 2 % (0.0-5.0); EOSINOPHILS % (MANUAL) 2 % (0-4); LYMPHOCYTES % (MANUAL) 19 % (16-48); MONOCYTES % (MANUAL) 17 % (0-11.0); NEUTROPHILS % (MANUAL) 60 (42-76)
[2019-02-26] MEDS: DULOXETINE HCL 30 MG CAPSULE.DR PO SCH (08:32)
[2019-02-26] MEDS: FERROUS SULFATE (325 MG) 325 MG/TAB TABLET PO SCH (08:32)
[2019-02-26] MEDS: CEPHALEXIN MONOHYDRATE 250 MG CAPSULE PO SCH ×2 (08:32→12:24)
[2019-02-26] MEDS: ASPIRIN 81 MG TAB.CHEW PO SCH (08:32)
[2019-02-26 08:36] VITALS: BP 110/68
[2019-02-26] MEDS: AMIODARONE HCL 200 MG TABLET PO SCH (08:36)
[2019-02-26] MEDS: ENSURE ENLIVE 237 ML LIQUID (VANILLA) PO SCH (08:48)
--- NOTE | 2019-02-26 10:06 | NUR ---
WOUND CARE CONSULT: PT SEEN FOR LEFT ARM SKIN TEAR AND DISCOLORATION OF SKIN TO RT THIGH AREA WITH EDEMA. RECOMMENDATIONS MADE FOR SKIN PROTECTION AND WOUND CARE. DISCUSSED WITH NURSING STAFF. DEFER TO MD FOR EDEMA WITH DISCOLORATION TO RT THIGH AREA. SITTER AT BEDSIDE. WILL SEE PRN. Addendum: 02/26/19 at 1008 by SJ STAHL WNDNU Amended: Links added.
[2019-02-26] MEDS ORDERED: FERR325T28 PO (10:15)
[2019-02-26] MEDS ORDERED: DULO30CA2 PO (10:15)
[2019-02-26] MEDS ORDERED: CEPH250C PO (10:15)
[2019-02-26] MEDS: Magnesium 1GM/D5W 100ML PREMIX 100 ML IV SCH ×2 (10:50→12:20)
--- NOTE | 2019-02-26 11:15 | NUR ---
MS RN NOTES SITTER REPORTED TO RN THAT PATIENT'S DAUGHTER, IMMANUEL TOOK PATIENT'S BELONGINGS INCLUDING PATIENT'S HEARING AIDS AND CLOTHING. INVENTORY LIST NOT SIGNED BY DAUGHTER. NO CONTACT INFORMATION FOR DAUGHTER IMMANUEL FOUND ON FILE. PLACED CALL TO MARIAELENA FROM HOSPICE AND ASKED FOR IMMANUEL'S PHONE NUMBER BUT NUMBER PROVIDED WAS NOT WORKING. CASE MANAGEMENT MADE AWARE
--- NOTE | 2019-02-26 14:50 | NUR ---
MS RN NOTES PATIENT FOR DISCHARGE HOME TODAY, PATIENT WILL BE ON HOSPICE CARE UPON ARRIVING AT HOME. DISCHARGE INSTRUCTIONS AND EDUCATION PROVIDED. PATIENT BELONGINGS ALREADY TAKEN OF DAUGHTER IMMANUEL EARLIER TODAY PRIOR TO DISCHARGE. IV REMOVED WITH TIP INTACT, PRESSURE DRESSING PLACED ON SITE. NO REPORT OF MISSING BELONGINGS. HOME MEDICATIONS RECEIVED FROM PHARMACY AND GAVE TO EMT'S ALONG WITH PATIENT'S DISCHARGE INFORMATION. PATIENT LEFT UNIT VIA GURNEY AWAKE, ALERT AND ORIENTED X 2. NO ACUTE DISTRESS. DENIES ANY PAIN OR DISCOMFORT. NO NEW SKIN BREAKDOWN NOTED ON DISCHARGE. MD AWARE OF DISCHARGE
--- NOTE | 2019-02-26 15:28 | NUR ---
RN NOTES RECEIVED CALL FROM DAUGHTER, IMMANUEL. VERBALIZED THAT PATIENT HAS ARRIVED HOME AND THAT SHE RECEIVED PATIENT'S HOME MEDICATIONS. ALSO VERIFIED WITH DAUGHTER IMMANUEL THAT ALL OF PATIENT'S BELONGINGS, CLOTHING, JEWELRY ARE ALL PRESENT AND THAT NONE ARE MISSING. DAUGHTER IMMANUEL VERBALIZED THAT SHE HAS EVERYTHING AND THAT EVERYTHING IS COMPLETE INCLUDING JEWELRY, HEARING AIDS, MEDICATIONS. CHARGE NURSE MADE AWARE.
[2019-02-27 02:07] LABS: BETA-2 MICROGLOBULIN, SERUM 2.7 mg/L (0.6-2.4)
== END 2019-02-26 14:45 | disposition hospice, home (50) | DRG 640 ==
LOC: ER 02:35 → TELE 05:17 → MED 08:01
PROVIDERS: ADMIT Internal Medicine; ATTEND Registered Nurse
DX: E87.1 Hypo-osmolality and hyponatremia (principal); G93.41 Metabolic encephalopathy; N39.0 Urinary tract infection, site not specified; M48.54XA Collapsed vertebra, not elsewhere classified, thoracic region, initial encounter for fracture; I10 Essential (primary) hypertension; B96.20 Unspecified Escherichia coli [E. coli] as the cause of diseases classified elsewhere; E04.2 Nontoxic multinodular goiter; F32.9 Major depressive disorder, single episode, unspecified; R59.9 Enlarged lymph nodes, unspecified; Z66 Do not resuscitate; Z91.5 Personal history of self-harm; Z87.440 Personal history of urinary (tract) infections; Z74.01 Bed confinement status; W19.XXXA Unspecified fall, initial encounter; Y92.9 Unspecified place or not applicable; E86.1 Hypovolemia; M43.12 Spondylolisthesis, cervical region; I70.0 Atherosclerosis of aorta; G89.29 Other chronic pain; E83.42 Hypomagnesemia; M48.00 Spinal stenosis, site unspecified; H91.90 Unspecified hearing loss, unspecified ear; D64.9 Anemia, unspecified
CPT/HCPCS: 36415; 70450-TC; 71045-TC; 72074-TC; 72110-TC; 72125-TC; 76536-TC; 80048-TC; 80053-TC; 80061-TC; 80076-TC; 80305; 81000-TC; 82232; 82378; 82533; 82550-TC; 82570-TC; 82728-TC; 82784; 83540-TC; 83605-TC; 83735-TC; 83935-TC; 83970; 84100-TC; 84155; 84155-TC; 84165; 84300-TC; 84443-TC; 84484-TC; 84550-TC; 85025-TC; 85610-TC; 85730-TC; 86301; 86304; 86334; 86800; 86850-TC; 86921-TC; 87040-TC; 87081-TC; 87086-TC; 87186-TC; 94799-TC; 97112-TC; 97530-TC; A6253; G0378; G0480; J0696; J3475; J7030; J7040; J7050; J7060; P9016-BL